=== PATIENT | male | born 1945 | race African-American/Black ===

== ENCOUNTER 2020-02-20 09:04 | Inpatient (IN) | payer MEDICARE, OTHER ==
[~2020-02-20] VITALS: Ht 182.9 cm; Wt 71.2 kg
[2020-02-20] MEDS ORDERED: DICL75TA5 MT (09:19)
[2020-02-20] MEDS ORDERED: FINA5TAB11 MT (09:19)
[2020-02-20] MEDS ORDERED: CHOL40002 MT (09:19)
[2020-02-20] MEDS ORDERED: OMEP20CA14 PO (09:19)
[2020-02-20] MEDS ORDERED: SODIUM CHLORIDE 0.9% 250 ML IV ONE (09:31)
[2020-02-20 09:52] LABS: HEMATOCRIT. 45.7 % (42.0-52.0); HEMOGLOBIN. 14.9 g/dL (14.0-18.0); MEAN CORPUSCULAR HEMOGLOBIN 26.7 pg (28.0-32.0); MEAN CORPUSCULAR VOLUME 81.8 fL (80.0-94.0); MEAN PLATELET VOLUME 8.8 fl (7.4-10.4); PLATELET 229 x1000/uL (130-400); RED BLOOD CELL COUNT 5.59 mill/uL (4.7-6.1); RED CELL DISTRIBUTION WIDTH 16.5 % (11.6-14.6)
[2020-02-20 10:00] LABS: CHLORIDE 109 mEq/L (98-107)
[2020-02-20 10:09] LABS: FIBRINOGEN 583 mg/dL (200-400); INR 1.2; PROTHROMBIN TIME 12.7 sec (9.6-11.0)
[2020-02-20] MEDS ORDERED: FUROSEMIDE 100MG/10ML VIAL IV STA (10:14)
[2020-02-20] MEDS ORDERED: ALBUTEROL (0.083%) 2.5MG/3ML NEB HHN ONE (10:15)
[2020-02-20] MEDS ORDERED: CALCIUM CHLORIDE 1GM/10ML SYR IV ONE (10:15)
[2020-02-20] MEDS ORDERED: SODIUM POLYSTYRENE SULFONATE 15 G/60 ML BOT PO ONE (10:15)
[2020-02-20] MEDS ORDERED: DEXTROSE 50% WATER 50ML SYRINGE IV ONE (10:15)
[2020-02-20] MEDS ORDERED: SODIUM CHLORIDE 0.9% 1,000 ML IV ONE (10:15)
[2020-02-20] MEDS ORDERED: INSULIN REGULAR (HUMULIN R) 300UNITS/3ML IV ONE (10:15)
[2020-02-20] MEDS ORDERED: SODIUM BICARBONATE 8.4% 1 MEQ/ML 50ML SYR IV ONE (10:15)
[2020-02-20 10:25] LABS: PLATELET ESTIMATE NORMAL
[2020-02-20] MEDS ORDERED: PIPERACILLIN/TAZ 3.375G PREMIX 50 ML IV ONE (10:45)
[2020-02-20 11:03] LABS: D-DIMER > 35.20 mg/L FEU (<0.50)
[2020-02-20 11:23] LABS: CLARITY URINE CLEAR (CLEAR); COLOR URINE YELLOW (YELLOW); KETONES URINE NEGATIVE (NEGATIVE); LEUKOCYTE ESTERASE URINE 1+ (NEGATIVE); NITRITE URINE NEGATIVE (NEGATIVE); OCCULT BLOOD URINE TRACE (NEGATIVE); PROTEIN URINE NEGATIVE (NEGATIVE); UROBILINOGEN URINE 0.2 E.U./dL (0.2-1.0)
[2020-02-20 12:54] LABS: HEPATITIS B SURFACE AB < 3.1 mIU/mL
[2020-02-20] MEDS ORDERED: SODIUM BICARBONATE 150 MEQ in DEXTROSE 5% WATER 1,000 ML IV SCH (13:00)
[2020-02-20 13:05] LABS: HEPATITIS B SURFACE ANTIGEN NEGATIVE
[2020-02-20 13:34] LABS: HEPATITIS A AB IGM NEGATIVE (NEGATIVE)
[2020-02-20] MEDS ORDERED: HYDRALAZINE 20MG/ML VIAL IV NR (16:30)
[2020-02-20] MEDS ORDERED: ALBUTEROL 6.7GM HFA INHALER ORI PRN (18:30)
[2020-02-20 19:30] VITALS: BP 107/76
[2020-02-20] MEDS ORDERED: CHOL200077 PO (20:11)
[2020-02-20] MEDS ORDERED: DIPHENHYDRAMINE 50MG/ML VIAL IV PRN (20:30)
[2020-02-20] MEDS ORDERED: ACETAMINOPHEN 325MG TABLET PO PRN ×2 (20:30)
[2020-02-20] MEDS ORDERED: ONDANSETRON HCL 4MG/2ML INJ IV PRN (20:30)
[2020-02-20] MEDS ORDERED: CLONIDINE 0.1MG TABLET PO PRN (20:30)
[2020-02-20] MEDS: FAMOTIDINE 20MG TABLET PO SCH (21:00)
[2020-02-20] MEDS ORDERED: PIPERACILLIN/TAZOBACTAM 2.25 G in DEXTROSE 5% WATER 50 ML IV SCH (23:00)
[2020-02-20] MEDS: SODIUM CHLORIDE 0.9% INJ 3ML FLUSH IVF SCH (23:06)
[2020-02-21] VITALS: BP 91/56
[2020-02-21] MEDS ORDERED: POTASSIUM CHLORIDE 20MEQ TABLET SR PO NR (01:44)
[2020-02-21] MEDS: SODIUM CHLORIDE 0.45% 1,000 ML IV SCH ×3 (01:46→22:37)
[2020-02-21 04:00] VITALS: BP 99/55
[2020-02-21] MEDS: SODIUM CHLORIDE 0.9% INJ 3ML FLUSH IVF SCH ×3 (05:30→21:31)
[2020-02-21 08:00] VITALS: BP 104/51
[2020-02-21] MEDS ORDERED: MEDICATION NOT ON FORMULARY EA (Cholecalciferol (Vitamin D3) (Vitamin D3) 1 CAP) MT SCH (09:00)
[2020-02-21] MEDS: FINASTERIDE 5MG TABLET PO SCH (09:21)
[2020-02-21] MEDS: OMEPRAZOLE 20MG CAPSULE EXTENDED RELEASE PO SCH (09:21)
[2020-02-21] MEDS: CHOLECALCIFEROL (D3) 1000 UNIT TABLET PO SCH (09:21)
[2020-02-21 09:44] LABS: BG BASE EXCESS -2.2 mmol/L (-2.0-2.0); BG CARBOXYHEMOGLOBIN 1.4 % (0.5-1.5); BG DEOXYHEMOGLOBIN 4.8 % (0.0-5.0); BG FRACTION INSPIRED OXYGEN 21; BG HCO3 ACT 20.7 mmol/L (22.0-26.0); BG METHEMOGLOBIN 0.1 % (0.0-1.5); BG OXYGEN SATURATION 95.1 % (92.0-98.5); BG OXYHEMOGLOBIN 93.7 % (94.0-97.0); BG PCO2 30.5 mmHg (35.0-45.0); BG PH 7.449 (7.350-7.450); BG SAMPLE SITE RIGHT RADIAL; BG TOTAL HEMOGLOBIN 13.8 g/dL (12.0-18.0); BG VENT MODE ROOM AIR
[2020-02-21 12:00] VITALS: BP 119/60
[2020-02-21] MEDS: PIPERACILLIN/TAZOBACTAM 2.25 G in DEXTROSE 5% WATER 50 ML IV SCH ×2 (14:45→22:37)
[2020-02-21 16:00] VITALS: BP 100/60
[2020-02-21 17:14] LABS: CREATINE KINASE MB FRACTION 5.9 ng/mL (0.5-3.6)
[2020-02-21 20:00] VITALS: BP 107/59
[2020-02-21 20:31] LABS: BASOPHILS % 0.3 % (0.0-2.0); EOSINOPHILS % 0.1 % (0.0-5.0); HEMATOCRIT. 38.2 % (42.0-52.0); HEMOGLOBIN. 12.5 g/dL (14.0-18.0); LYMPHOCYTES % 8.2 % (20.0-50.0); MEAN CORPUSCULAR HEMOGLOBIN 26.5 pg (28.0-32.0); MEAN PLATELET VOLUME 8.8 fl (7.4-10.4); MONOCYTES % 9.2 % (2.0-8.0); NEUTROPHILS % 82.2 % (40.0-76.0); PLATELET 139 x1000/uL (130-400); RED BLOOD CELL COUNT 4.71 mill/uL (4.7-6.1); RED CELL DISTRIBUTION WIDTH 15.6 % (11.6-14.6)
[2020-02-21] MEDS: FAMOTIDINE 20MG TABLET PO SCH (21:30)
[2020-02-22] VITALS: BP 96/62
[2020-02-22 04:00] VITALS: BP 118/61
[2020-02-22] MEDS: SODIUM CHLORIDE 0.9% INJ 3ML FLUSH IVF SCH ×3 (05:15→21:02)
[2020-02-22 07:12] LABS: BASOPHILS % 0.2 % (0.0-2.0); EOSINOPHILS % 0.4 % (0.0-5.0); HEMATOCRIT. 37.1 % (42.0-52.0); HEMOGLOBIN. 12.2 g/dL (14.0-18.0); LYMPHOCYTES % 8.7 % (20.0-50.0); MEAN CORPUSCULAR HEMOGLOBIN 26.4 pg (28.0-32.0); MEAN CORPUSCULAR VOLUME 80.5 fL (80.0-94.0); MEAN PLATELET VOLUME 8.6 fl (7.4-10.4); MONOCYTES % 9.9 % (2.0-8.0); NEUTROPHILS % 80.8 % (40.0-76.0); PLATELET 134 x1000/uL (130-400); RED BLOOD CELL COUNT 4.61 mill/uL (4.7-6.1); RED CELL DISTRIBUTION WIDTH 15.7 % (11.6-14.6)
[2020-02-22 08:00] VITALS: BP 118/58
[2020-02-22] MEDS: CHOLECALCIFEROL (D3) 1000 UNIT TABLET PO SCH (08:35)
[2020-02-22] MEDS: FINASTERIDE 5MG TABLET PO SCH (08:35)
[2020-02-22] MEDS: OMEPRAZOLE 20MG CAPSULE EXTENDED RELEASE PO SCH (08:35)
[2020-02-22] MEDS: SODIUM CHLORIDE 0.45% 1,000 ML IV SCH (08:38)
[2020-02-22] MEDS: PIPERACILLIN/TAZOBACTAM 2.25 G in DEXTROSE 5% WATER 50 ML IV SCH (09:59)
[2020-02-22 12:00] VITALS: BP 117/68
[2020-02-22] MEDS: DEXTROSE 5% WATER 1,000 ML IV SCH (14:44)
[2020-02-22 16:00] VITALS: BP 115/68
[2020-02-22 20:00] VITALS: BP 122/75
[2020-02-22] MEDS: FAMOTIDINE 20MG TABLET PO SCH (21:01)
[2020-02-23] VITALS: BP 128/87
[2020-02-23 04:00] VITALS: BP 125/79
[2020-02-23] MEDS: SODIUM CHLORIDE 0.9% INJ 3ML FLUSH IVF SCH ×3 (05:46→20:48)
[2020-02-23 06:06] LABS: BASOPHILS % 0.6 % (0.0-2.0); HEMOGLOBIN. 12.7 g/dL (14.0-18.0); LYMPHOCYTES % 9.1 % (20.0-50.0); MEAN CORPUSCULAR HEMOGLOBIN 26.4 pg (28.0-32.0); MEAN CORPUSCULAR VOLUME 81.3 fL (80.0-94.0); MEAN PLATELET VOLUME 9.4 fl (7.4-10.4); MONOCYTES % 6.9 % (2.0-8.0); NEUTROPHILS % 82.4 % (40.0-76.0); PLATELET 143 x1000/uL (130-400); RED CELL DISTRIBUTION WIDTH 15.5 % (11.6-14.6)
[2020-02-23 06:40] LABS: CHLORIDE 114 mEq/L (98-107)
[2020-02-23 07:53] VITALS: BP 140/82
[2020-02-23] MEDS ORDERED: POTASSIUM CHLORIDE 20MEQ TABLET SR PO NR (08:37)
[2020-02-23] MEDS: FINASTERIDE 5MG TABLET PO SCH (09:04)
[2020-02-23] MEDS: CHOLECALCIFEROL (D3) 1000 UNIT TABLET PO SCH (09:04)
[2020-02-23 12:00] VITALS: BP 116/70
[2020-02-23] MEDS: DEXTROSE 5% WATER 1,000 ML IV SCH (13:59)
[2020-02-23 16:00] VITALS: BP 144/85
[2020-02-23 20:00] VITALS: BP 143/79
[2020-02-23] MEDS: FAMOTIDINE 20MG TABLET PO SCH (20:47)
[2020-02-24] VITALS: BP 128/89
[2020-02-24] MEDS ORDERED: MAGNESIUM 4 G PREMIX 100 ML IV NR (02:00)
[2020-02-24 04:00] VITALS: BP 130/88
[2020-02-24] MEDS: SODIUM CHLORIDE 0.9% INJ 3ML FLUSH IVF SCH ×2 (05:57→13:44)
[2020-02-24 06:34] LABS: CHLORIDE 109 mEq/L (98-107)
[2020-02-24 06:47] LABS: BASOPHILS % 0.2 % (0.0-2.0); HEMOGLOBIN. 13.2 g/dL (14.0-18.0); LYMPHOCYTES % 9.1 % (20.0-50.0); MEAN CORPUSCULAR HEMOGLOBIN 26.4 pg (28.0-32.0); MEAN PLATELET VOLUME 9.3 fl (7.4-10.4); MONOCYTES % 8.9 % (2.0-8.0); NEUTROPHILS % 79.8 % (40.0-76.0); PLATELET 162 x1000/uL (130-400); RED CELL DISTRIBUTION WIDTH 15.7 % (11.6-14.6)
[2020-02-24 08:00] VITALS: BP 129/73
[2020-02-24] MEDS: CHOLECALCIFEROL (D3) 1000 UNIT TABLET PO SCH (09:11)
[2020-02-24] MEDS: FINASTERIDE 5MG TABLET PO SCH (09:11)
[2020-02-24] MEDS ORDERED: POTASSIUM CHLORIDE 20MEQ TABLET SR PO NR (10:15)
[2020-02-24 12:00] VITALS: BP 132/76
[2020-02-24] MEDS ORDERED: BISACODYL 10MG SUPP PR SCH (14:00)
[2020-02-24 15:34] VITALS: BP 109/55
[2020-02-24 15:36] VITALS: BP 109/55
== END 2020-02-24 18:15 | DRG 871 ==
LOC: ER 09:07 → 7WST 10:33 → EDBEDREQTM 10:39 → EDBEDREQ 10:39 → EDBEDREQSVC 10:39 → ENRESERV 18:43 → EDBEDREQSVC 18:56 → 8WST 02-21 06:03
PROVIDERS: ADMIT Internal Medicine; ATTEND Internal Medicine
PROC: 02HV33Z Insertion of Infusion Device into Superior Vena Cava, Percutaneous Approach (ICD-10-PCS; principal; 2020-02-20)
PROC: 5A1D70Z Performance of Urinary Filtration, Intermittent, Less than 6 Hours Per Day (ICD-10-PCS; 2020-02-20)
DX: A41.9 Sepsis, unspecified organism (principal); I21.4 Non-ST elevation (NSTEMI) myocardial infarction; J96.00 Acute respiratory failure, unspecified whether with hypoxia or hypercapnia; G93.41 Metabolic encephalopathy; E43 Unspecified severe protein-calorie malnutrition; N17.9 Acute kidney failure, unspecified; E87.2 Acidosis; E87.0 Hyperosmolality and hypernatremia; E87.5 Hyperkalemia; I44.7 Left bundle-branch block, unspecified; D64.9 Anemia, unspecified; F17.200 Nicotine dependence, unspecified, uncomplicated; N13.9 Obstructive and reflux uropathy, unspecified; D72.829 Elevated white blood cell count, unspecified; D72.810 Lymphocytopenia; C61 Malignant neoplasm of prostate; Z20.828 Contact with and (suspected) exposure to other viral communicable diseases; I25.118 Atherosclerotic heart disease of native coronary artery with other forms of angina pectoris; N18.9 Chronic kidney disease, unspecified; I12.9 Hypertensive chronic kidney disease with stage 1 through stage 4 chronic kidney disease, or unspecified chronic kidney disease; Z68.21 Body mass index [BMI] 21.0-21.9, adult; Z85.46 Personal history of malignant neoplasm of prostate
CPT/HCPCS: 36415; 36600; 71045; 77001; 80048; 80053; 80076; 81003; 82375; 82550; 82553; 82728; 82805; 83605; 83735; 83880; 84145; 84484; 85025; 85379; 85384; 86705; 86706; 86709; 86803; 87340; 93005; 93306; 93970; 94644; 96365; 97162; 97166; 99291; C1752; J1815; J1940; J2543; J3475; J3490; J7030; J7060; J7070; U0003-CS